=== PATIENT | male | born 1950 | race Hispanic/Latino ===

== ENCOUNTER → 2024-07-09 | Outpatient (CLI) | payer OTHER ==
[~2024-07-09] MED LIST: IOHEXOL 350 MG/ML 100ML INFUS..BTL IV ONE
== END | disposition home or self-care (01) ==
LOC: RAH 09:37
PROVIDERS: ATTEND Internal Medicine Cardiovascular Disease
DX: R06.09 Other forms of dyspnea (principal); M47.815 Spondylosis without myelopathy or radiculopathy, thoracolumbar region
CPT/HCPCS: 75574; Q9967

== ENCOUNTER 2025-11-01 11:48 | Emergency (ER) | payer OTHER ==
[~2025-11-01] VITALS: Ht 170.2 cm; Wt 82.6 kg
[~2025-11-01 11:48] MED LIST changes: +ATOR40TA71 PO; +DIPH25CA85 PO; +HYDR25TA PO; -IOHEXOL 350 MG/ML 100ML INFUS..BTL IV ONE; +LOSA25TA41 PO; +MONT-46 PO; +PRED20TA3 PO; +TAMS-55 PO
[2025-11-01 11:49] VITALS: BP 149/66; PULSE 66; RESP 20; TEMP 97.3
--- NOTE | 2025-11-01 12:08 | ERN ---
ED Note History of Present Illness Stated Complaint: URINARY FREQUENCY AND PAINFUL URINATION Chief Complaint: Painful Urination Time Seen by MD: 11:55 Dictation: This is a 75-year-old male who presented to the emergency room complaining of increased urinary frequency and painful urination. He reported that he also has some right testicular pain. No fever chills or rigors. He has had this pain before and he was diagnosed with prostate CA and he is followed at [facility]. He constantly gets UTIs and is on prophylactic antibiotics many times. Temperature 97.3 pulse 66 respirations 20 blood pressure 149/66 with a pulse oximetry of 99% on room air Chronic medical problems include hypertension hypercholesterolemia prostate CA and recurrent UTIs Allergies: Coded Allergies: morphine (Unverified Allergy, Unknown, 09/23/25) piperacillin (Unverified Allergy, Unknown, 09/23/25) valacyclovir (Unverified Allergy, Unknown, 09/23/25) Home Meds Active Scripts Montelukast Sodium (Singulair 10Mg) 10 Mg Tab, 1 TAB PO DAILY for 15 Days, #15 TAB 0 Refills Prov:RICHIE ARIAS MD 09/24/25 Diphenhydramine HCl (Benadryl) 25 Mg Capsule, 1 CAP PO HS for 15 Days, #30 CAP 0 Refills Prov:RICHIE ARIAS MD 09/24/25 Prednisone (Prednisone) 20 Mg Tablet, 40 MG PO BID for allergy, #15 TAB Prov:RICHIE ARIAS MD 09/24/25 Prednisone (Prednisone) 20 Mg Tablet, 20 MG PO BID for allery, #15 TAB Prov:RICHIE ARIAS MD 09/24/25 Reported Medications Tamsulosin HCl (Flomax) 0.4 Mg Cap.er.24h, 0.4 MG PO DAILY, CAPSULE.DR 09/22/25 Atorvastatin Calcium (Atorvastatin Calcium) 40 Mg Tablet, 1 TAB PO DAILY for 30 Days, #30 TAB 0 Refills 09/22/25 Hydrochlorothiazide (Hydrochlorothiazide) 25 Mg Tablet, 1 TAB PO DAILY for 30 Days, #30 TAB 0 Refills 09/22/25 Losartan Potassium (Losartan Potassium) 25 Mg Tablet, 40 MG PO DAILY, TAB 09/22/25 Past Medical History Past Medical History: Cancer (Prostate CA), High Cholesterol, Hypertension Surgical History: None Family History: Negative Social History: Negative RN Note Reviewed/Agreed w/PFSH: Yes Review of System Dictation Constitutional: Negative for fever,chills, and weight loss Eyes: Negative for injury, pain,redness, and discharge ENT: Negative for injury,pain or swelling Cardiovascular: Negative for chest pain, palpitations, and edema Respiratory: Negative for shortness of breath, cough, and wheezing, Abdomen/GI: Negative for abdominal pain, nausea, vomiting, diarrhea, and constipation Back: Negative for injury and pain : Negative for injury, bleeding and discharge positive for frequency and dysuria and right-sided testicular pain MS/Extremity: Negative for injury and deformity Skin: Negative for rash, and discoloration Neuro: Negative for headache, weakness, numbness, tingling, and seizure Psych: Negative for suicide ideation, homicidal ideation, and hallucinations Initial Vital Sign VS Vital Signs Date Time Temp Pulse Resp B/P (MAP) Pulse Ox O2 Delivery O2 Flow Rate FiO2 11/01/25 11:49 97.3 66 20 149/66 99 Room Air 0 Physical Exam Dictation General: awake, alert, NAD Head/Face: Normocephalic, atraumatic Eyes: PERRL, EOMI, vision at baseline ENT: oral cavity clear, TMs clear, no signs of infection Neck: Trachea midline, supple, no nuchal rigidity Cardiovascular: RRR, normal S1/S2, No MRGs, no JVD Respiratory: CTAB, no respiratory distress, No rales or wheezes Abdomen: Soft, non-tender, non-distended, normal bowel sounds, no guarding or rebound. Skin: Warm, dry, normal turgor, no rash MS/Extremity: Pulses equal, no cyanosis, neurovascular intact, FROM Neuro: COAx4, GCS 15, strength 5/5, CN 2-12 intact, normal cerebellar exam, normal gait, Psych: Normal behavior, mood, and affect normal Extremities-trace edema without any palpable cords, Homans sign is negative Results (Laboratory/Radiology) Laboratory/Radiology Laboratory Tests Test 11/01/25 13:12 11/01/25 13:31 Urine Color LIGHT-YELLOW (YELLOW) Urine Appearance CLEAR (CLEAR) Urine pH 5.5 (5.0-8.0) Urine Specific [place] 1.005 (1.001-1.031) Urine Protein NEGATIVE mg/dL (NEGATIVE) Urine Glucose (UA) NEGATIVE mg/dL (NEGATIVE) Urine Ketones NEGATIVE mg/dL (NEGATIVE) Urine Occult Blood NEGATIVE (NEGATIVE) Urine Nitrate NEGATIVE (NEGATIVE) Urine Bilirubin NEGATIVE mg/dL (NEGATIVE) Urine Urobilinogen 0.2 mg/dL (0.2-1.0) Urine Leukocyte Esterase NEGATIVE Kathryn/uL White Blood Count 6.8 K/uL (4.8-10.8) Red Blood Count 4.93 MIL/uL (4.50-6.20) Hemoglobin 14.8 g/dL (14.0-18.0) Hematocrit 43.4 % (42-54) Mean Corpuscular Volume 88.0 fL (79-99) Mean Corpuscular Hemoglobin 30.0 pg (27.0-33.0) Mean Corpuscular Hemoglobin Concent 34.1 g/dL (32.0-36.0) Red Cell Distribution Width 13.8 % (11.0-15.5) Platelet Count 211 K/uL (130-400) Mean Platelet Volume 11.2 fL (7.5-10.5) H Immature Granulocyte % (Auto) 0.4 % (0-1) Neutrophils (%) (Auto) 69.1 % (40.0-77.0) Lymphocytes (%) (Auto) 19.1 % (21.0-51.0) L Monocytes (%) (Auto) 7.9 % (3.0-13.0) Eosinophils (%) (Auto) 2.9 % (0.0-8.0) Basophils (%) (Auto) 0.6 % (0.0-5.0) Neutrophils # (Auto) 4.7 K/uL (1.8-7.7) Lymphocytes # (Auto) 1.3 K/uL (1.0-4.8) Monocytes # (Auto) 0.5 K/uL (0.1-1.0) Eosinophils # (Auto) 0.20 K/uL (0.00-0.70) Basophils # (Auto) 0.04 K/uL (0.00-0.20) Absolute Immature Granulocyte (auto 0.03 K/uL (0-1) Nucleated Red Blood Cells 0.0 % (0.0-0.19) Sodium Level 139 mmol/L (136-145) Potassium Level 4.2 mmol/L (3.5-5.1) Chloride Level 106 mmol/L (101-111) Carbon Dioxide Level 27 mmol/L (21-32) Blood Urea Nitrogen 15 mg/dL (7-18) Creatinine 1.0 mg/dL (0.5-1.3) Glomerular Filtration Rate Calc 79 mL/min (>90) Random Glucose 90 mg/dL (70-105) Total Calcium 8.9 mg/dL (8.5-10.1) Labs Reviewed?: Yes Ultrasound Comment: REASON: SWELLING TO RIGHT TESTICLE ORDERING PHYSICIAN: JEANETH GONZALEZ PROCEDURE: SCROTUM - US SCROTUM & CONTENTS EXAM: Ultrasound Scrotum CLINICAL HISTORY: Swelling of the right testicle. TECHNIQUE: Real-time ultrasound of the scrotum performed with grayscale and color Doppler imaging. COMPARISON: None provided. FINDINGS: Right Testicle: Measures 3.1 ??? 2.2 ??? 2.8 cm. Parenchyma homogeneous with normal echogenicity. No focal mass or calcification. Normal intratesticular vascular flow on color Doppler. Right Epididymis: Head measures 8 mm, body 4 mm, and tail 8 mm???slightly increased in size with increased vascularity on Doppler, consistent with epididymitis. Multiple small epididymal cysts measuring up to 4 ??? 3 mm noted. Small right hydrocele present. Left Testicle: Measures 3.9 ??? 2.0 ??? 2.6 cm. Homogeneous echotexture with normal e chogenicity and vascularity. No focal lesion. Left Epididymis: Head measures 8 mm, body 3 mm, tail 5 mm. Normal vascularity. Small epididymal cyst measuring 5 ??? 7 ??? 5 mm. Scrotum: No varicocele or extratesticular mass seen. IMPRESSION: * Findings consistent with right-sided epididymitis???enlarged and hypervascular right epididymis. * Small right hydrocele. * Bilateral small epididymal cysts, the largest measuring 5 ??? 7 ??? 5 mm on the left. * No intratesticular mass or torsion. * Correlate clinically for infection; follow-up ultrasound recommended to confirm resolution. /[place] DICTATED BY: ANA BLACKWELL MD DATE: 09/20/25905 ELECTRONICALLY SIGNED BY: ANA BLACKWELL MD DATE: 09/20/25905 ED Course ED Course Orders Procedure Category Date Status Time Urinalysis Profile LAB 11/01/25 Complete 11:54 Cbc With Differential LAB 11/01/25 Complete 13:17 Basic Metabolic Panel LAB 11/01/25 Complete 13:17 Ketorolac PHA 11/01/25 Complete Tromethamine 30mg/Ml 14:30 Us Scrotum & Contents US 11/01/25 Resulted 14:22 Current Medications Medications (Trade) Dose Ordered Sig/Lilly Route PRN Reason Start Time Stop Time Status Last Admin Dose Admin Ketorolac Tromethamine (toRADol) 30 mg ONCE ONCE IM 11/01/25 14:30 11/01/25 14:31 DC 11/01/25 14:57 Vital Signs Date Time Temp Pulse Resp B/P (MAP) Pulse Ox O2 Delivery O2 Flow Rate FiO2 11/01/25 11:49 97.3 66 20 149/66 99 Room Air 0 Medical Decision Making MDM Differential diagnosis: Acute cystitis, prostatitis pyelonephritis, foreign body, stent or stone or reactive urethritis. Any instrumentation related, colitis, constipation, appendicitis, This is a 75-year-old male who presented to the emergency room complaining of increased urinary frequency and painful urination. He reported that he also has some right testicular pain. No fever chills or rigors. He has had this pain before and he was diagnosed with prostate CA and he is followed at [facility]. He constantly gets UTIs and is on prophylactic antibiotics many times. Temperature 97.3 pulse 66 respirations 20 blood pressure 149/66 with a pulse oximetry of 99% on room air Chronic medical problems include hypertension hypercholesterolemia prostate CA and recurrent UTIs 2:19 p.m. labs reviewed CBC with a normal limits, BNP 7 is normal. Urinalysis is unremarkable for a UTI. I also updated the patient on labs as well as ultrasound of the scrotum that showed only a small hydrocele but previous epididymitis has significantly resolved. Patient felt satisfied and he has recently completed antibiotics and does not wish to get any additional medications at this time. He was in a hurry to be discharged to home as he stated that his fell and he needed to go home Rationale: Tests considered and ordered secondary to shared decision making include: Labs and ultrasound of the scrotum Previous outside records reviewed: Old ER visits. Risk of complication and/or morbidity or mortality of patient management: None Medications-Per medication reconciliation Need for hospitalization: Patient does not meet criteria for hospitalization. Need for emergency major/minor surgery: No There are no social concerns with this patient. Prescription drug management Prescriptions will include symptomatic care Patient's prior external medical records from other ER visits were reviewed by me as indicated. Prior testing and results from previous visits were reviewed. Prior tests were taken into account with medical decision making and resource utilization, independent historian/historians were used to obtain complete medical history. I independently interpreted the test that were performed, results were reviewed by me and considered findings on radiology if ordered. Medical management and examination interpretation discussions were had by me with other qualified healthcare professionals as indicated for the patient's care. Problem List Problem List: (1) Testicular pain (2) Dysuria (3) Prostate cancer DX & DISP Disposition: Discharge Departure Impression: Primary Impression: Testicular pain Additional Impressions: Dysuria, Prostate cancer Condition: Stable Additional Instructions: Patient and the caregiver have been informed of all the diagnostic tests and the imaging conducted during the today's visit to the emergency room and has verbalized understanding of the results I have personally reviewed and interpreted all diagnostic exams performed here in the ER today as well as the vital signs documented by the nursing staff. The patient is now being discharged to home and should follow up with the primary care physician or the specialist as directed by the ER staff. Referrals: SELF,REFERRAL (PCP) TANIKA BAZAN MD Nov 01, 2025 12:08
[2025-11-01 13:20] LABS: ADD UA MICROSCOPIC NO; APPEARANCE,URINE CLEAR (CLEAR); GLUCOSE, URINE (UA) NEGATIVE (NEGATIVE); LEUKOCYTE ESTERASE ,URINE NEGATIVE Leu/uL (NEGATIVE); NITRATE,URINE NEGATIVE (NEGATIVE); OCCULT BLOOD,URINE NEGATIVE (NEGATIVE)
[2025-11-01 13:36] LABS: IMMATURE GRANULOCYTE ABSOLUTE 0.03 K/uL (0-1); NUCLEATED RED BLOOD CELLS 0.0 % (0.0-0.19); PLATELET COUNT (AUTO) 211 K/uL (130-400); RED BLOOD CELL COUNT(AUTO) 4.93 MIL/uL (4.50-6.20); RED CELL DISTRIBUTION WIDTH 13.8 % (11.0-15.5); WHITE BLOOD COUNT (AUTO) 6.8 K/uL (4.8-10.8)
[2025-11-01 13:40] LABS: CREATININE 1.0 mg/dL (0.5-1.3); GLOMERULAR FILTR. RATE CALC 79.0 mL/min (>90); GLUCOSE,RANDOM 90.0 mg/dL (70-105); SODIUM SERUM 139.0 mmol/L (136-145); UREA NITROGEN, BLOOD 15.0 mg/dL (7-18)
--- NOTE | 2025-11-01 16:53 | HMCIMG ---
EXAM: US Scrotum. CLINICAL HISTORY: epididymitis right testicular pain TECHNIQUE: Real-time ultrasound of the scrotum with color Doppler and image documentation. COMPARISON: Study dated 09/19 FINDINGS: RIGHT TESTICLE: Measures approximately 3.4 1.9 2.5 cm. Normal in size and echogenicity with homogeneous texture. No focal intratesticular mass seen. Normal color Doppler flow. Small hydrocele. LEFT TESTICLE: Measures approximately 3.8 2.1 2.0 cm. Normal in size and echogenicity with homogeneous texture. No focal intratesticular mass seen. Normal color Doppler flow. EPIDIDYMIDES: The right epididymis measures approximately: head 10 mm, body 4 mm, tail 5 mm. A small cyst measuring approximately 6 5 5 mm. The left epididymis measures approximately: head 7 mm, body 5 mm, tail 4 mm. Both epididymides appear normal with color Doppler flow within normal limits. SCROTUM: Scrotal wall thickness on the right side measures approximately 4 mm. A right groin inflammatory lymph node is noted, measuring approximately 12 4 10 mm. No varicocele or extratesticular mass seen. IMPRESSION: 1. [id number] right hydrocele and small left hydrocele. 2. Interval resolution of right-sided epididymitis. /[facility]
== END 2025-11-01 16:26 | disposition home or self-care (01) ==
LOC: EDH 11:48
DX: N50.811 Right testicular pain (principal); E30.0 Delayed puberty; C61 Malignant neoplasm of prostate; E78.00 Pure hypercholesterolemia, unspecified; I10 Essential (primary) hypertension; Z88.0 Allergy status to penicillin; Z88.5 Allergy status to narcotic agent; Z88.8 Allergy status to other drugs, medicaments and biological substances; Z79.52 Long term (current) use of systemic steroids; Z79.899 Other long term (current) drug therapy
CPT/HCPCS: 99285; 80048; 85025; 81003; 36415; 76870; 96372; J1885